=== PATIENT | female | born 1970 | race Hispanic/Latino ===

== ENCOUNTER → 2018-01-05 | Outpatient (CLI) | payer SELFPAY | END | disposition home or self-care (01) | LOC: RAD 08:58 | DX: M77.32 Calcaneal spur, left foot (principal); M20.12 Hallux valgus (acquired), left foot; M21.612 Bunion of left foot; M19.072 Primary osteoarthritis, left ankle and foot; M76.62 Achilles tendinitis, left leg | CPT/HCPCS: 73630 ==